=== PATIENT | male | born 1935 | race Caucasian/White ===

== ENCOUNTER 2019-04-02 22:44 | Outpatient (CLI) | payer MEDICARE | END 2019-04-02 22:45 | disposition critical access hospital (66) | LOC: EMS 22:44 | PROVIDERS: ATTEND Surgery | DX: R46.4 Slowness and poor responsiveness (principal) | CPT/HCPCS: A0425; A0427 ==

== ENCOUNTER 2019-04-02 23:14 | Emergency (ER) | payer MEDICARE, OTHER ==
--- NOTE | 2019-04-02 23:32 | ED Physician Documentation ---
History of Present Illness - Stated complaint Stated Complaint: UNRESPONSIVE - Chief complaint Chief Complaint: General - History obtained from History obtained from: Patient, EMS - History of Present Illness Timing: Prior to arrival - Additonal information Additional information: Patient is an 84-year-old male with history of atrial fibrillation for which he is on anticoagulation of xarelto, as well as aortic valve replacement presenting with reported unresponsive episode while at home earlier this evening. Per EMS report, stated that patient went to sleep in his recliner as usual after dinner. However, she was unable to arouse him and given concerns, started CPR. It is unclear if patient was not breathing or without a pulse. is not currently available. By time of EMS arrival, no need for CPR was found and patient transported to the ED. Patient himself denies any complaints such as headache, vision changes, chest pain, abdominal pain, vomiting, urinary changes, stool changes, difficulty breathing, productive cough, fever, or other complaints. However, he does report that he fell while in the barn earlier today but does not believe he struck his head or loss consciousness. Patient does admit to drinking alcohol earlier tonight. He also has narcotic pain medications at home, but is unsure if he took any this evening. No other improving or worsening factors noted. Review of Systems Constitutional: denies: Fever Eyes: denies: Loss of vision Cardiac: denies: Chest pain / pressure Respiratory: denies: Dyspnea GI: denies: Abdominal Pain PD PAST MEDICAL HISTORY - Past Medical History Cardiovascular: Hypertension, High cholesterol, Atrial fibrillation, Valve disorder GI: GERD Psych: Depression Derm: Other (Basal cell carcinoma) - Past Surgical History General: Appendectomy Cardiovascular: Valve replacement HEENT: Cataracts, Tonsil/Adenoidectomy Other past surgical history: Multiple orthopedic repairs and joint replacements - Present Medications Home Medications: Ambulatory Orders Medication Instructions Recorded Confirmed Atorvastatin [Lipitor] 40 mg PO DAILY 04/03/19 04/03/19 Ca/D3/Mag Ox/Zinc/Senior Finance Manager/Michael/Bor 1 tab PO DAILY 04/03/19 04/03/19 [Calcium [id number] Chw Tb] Cetirizine [ZyrTEC] 10 mg PO DAILY 04/03/19 04/03/19 Chlorthalidone 25 mg PO DAILY 04/03/19 04/03/19 Fluticasone [Flonase] 1 spray МАРИЯ DAILY 04/03/19 04/03/19 Gabapentin 600 mg PO BID 04/03/19 04/03/19 Losartan Potassium 100 mg PO DAILY 04/03/19 04/03/19 Magnesium Oxide [Magnesium] 400 mg PO DAILY 04/03/19 04/03/19 Metoprolol Succinate [Toprol Xl] 50 mg PO DAILY 04/03/19 04/03/19 Pantoprazole [Protonix] 40 mg PO BID 04/03/19 04/03/19 Rivaroxaban [Xarelto] 20 mg PO DAILY 04/03/19 04/03/19 Tadalafil [Cialis] 20 mg PO PRN PRN 04/03/19 04/03/19 amLODIPine [Norvasc] 10 mg PO DAILY 04/03/19 04/03/19 oxyCODONE [Roxicodone] 5 mg PO PRN PRN 04/03/19 04/03/19 - Allergies Allergies/Adverse Reactions: Allergies Allergy/AdvReac Type Severity Reaction Status Date / Time atenolol AdvReac Intermediate Unknown Verified 04/03/19 00:29 azithromycin AdvReac Unknown Verified 04/03/19 00:30 diltiazem AdvReac Unknown Verified 04/03/19 00:30 lisinopril AdvReac Unknown Verified 04/03/19 00:30 procainamide AdvReac Unknown Verified 04/03/19 00:30 PD ED PE NORMAL - Vitals Vital signs reviewed: Yes - General General: Alert and oriented X 3, No acute distress, Well developed/nourished, Other (Slight tremor to left side (reported as chronic)) - HEENT HEENT: Atraumatic, PERRL (No miosis), EOMI (Gross visual acuity intact. No nystagmus.), Moist mucous membranes, Pharynx benign, Other (No evidence of tongue biting or intraoral trauma.) - Cardiac Cardiac: RRR, No murmur - Respiratory Respiratory: No respiratory distress, Clear bilaterally - Abdomen Abdomen: Normal bowel sounds, Soft, Non tender, Non distended - Derm Derm: Normal color, Warm and dry, No rash - Extremities Extremities: No deformity, No tenderness to palpate. No: No edema (2+ pitting pedal edema (reports chronic)) - Neuro Neuro: Alert and oriented X 3, toddler teacher 2-12 intact, No motor deficit, No sensory deficit (No gross deficits noted.However, tremor as stated above which is likely chronic. Slightly slow to respond to questioning but appropriate.) - Psych Psych: Normal mood, Normal affect (Slightly slow to respond to questioning and smells of alcohol) Results - Vitals Vitals: Vital Signs - 24 hr 04/02/19 04/02/19 04/03/19 23:16 23:31 00:06 Temperature 35.6 C L Heart Rate 76 69 71 Respiratory 21 16 19 Rate Blood Pressure 105/88 H 118/68 116/72 O2 Saturation 97 95 95 04/03/19 04/03/19 04/03/19 00:30 01:00 01:30 Temperature Heart Rate 68 66 69 Respiratory 15 15 15 Rate Blood Pressure 105/58 L 120/64 100/60 O2 Saturation 98 94 94 04/03/19 04/03/19 02:00 02:30 Temperature Heart Rate 58 L 71 Respiratory 14 22 Rate Blood Pressure 104/59 L 120/62 O2 Saturation 98 95 Oxygen O2 Source Room air - EKG (time done) 2318 Rate: Rate (enter#) (67) Rhythm: NSR Intervals: Prolonged QT, RBBB Compare to prior EKG: Unchanged from prior EKG - Labs Labs: Laboratory Tests 04/02/19 04/02/19 04/02/19 23:33 23:33 23:33 WBC 5.0 RBC 3.90 L Hgb 12.3 L Hct 36.6 L MCV 94.0 MCH 31.5 H MCHC 33.5 RDW 14.7 Plt Count 115 L MPV 9.2 Neut # (Auto) 3.3 Lymph # (Auto) 0.9 L [place] # (Auto) 0.5 Eos # (Auto) 0.2 Baso # (Auto) 0.0 Absolute Nucleated RBC 0.00 Nucleated RBC % 0.0 PT 19.2 H INR 1.7 H APTT 32.4 Sodium 138 Potassium 3.5 Chloride 100 L Carbon Dioxide 24 Anion Gap 14.0 H BUN 25 H Creatinine 1.5 H Estimated GFR (MDRD) 45 L Glucose 114 H Calcium 9.5 Total Bilirubin 0.6 AST 62 H ALT 42 Alkaline Phosphatase 47 Troponin I Total Protein 7.0 Albumin 4.2 Globulin 2.8 Albumin/Globulin Ratio 1.5 Lipase 28 TSH Urine Color Urine Clarity Urine pH Ur Specific [place] Urine Protein Urine Glucose (UA) Urine Ketones Urine Occult Blood Urine Nitrite Urine Bilirubin Urine Urobilinogen Ur Leukocyte Esterase Ur Microscopic Review Urine Culture Comments Salicylates < 6.0 Urine Opiates Screen Ur Oxycodone Screen Urine Methadone Screen Ur Propoxyphene Screen Acetaminophen < 10 L Ur Barbiturates Screen Ur Tricyclics Screen Ur Phencyclidine Scrn Ur Amphetamine Screen U Methamphetamines Scrn U Benzodiazepines Scrn Urine Cocaine Screen U Cannabinoids Screen Ethyl Alcohol 157.0 04/02/19 04/02/19 04/03/19 23:33 23:33 00:07 WBC RBC Hgb Hct MCV MCH MCHC RDW Plt Count MPV Neut # (Auto) Lymph # (Auto) [place] # (Auto) Eos # (Auto) Baso # (Auto) Absolute Nucleated RBC Nucleated RBC % PT INR APTT Sodium Potassium Chloride Carbon Dioxide Anion Gap BUN Creatinine Estimated GFR (MDRD) Glucose Calcium Total Bilirubin AST ALT Alkaline Phosphatase Troponin I < 0.04 Total Protein Albumin Globulin Albumin/Globulin Ratio Lipase TSH 3.36 Urine Color YELLOW Urine Clarity CLEAR Urine pH 6.0 Ur Specific [place] 1.010 Urine Protein NEGATIVE Urine Glucose (UA) NEGATIVE Urine Ketones NEGATIVE Urine Occult Blood NEGATIVE Urine Nitrite NEGATIVE Urine Bilirubin NEGATIVE Urine Urobilinogen 0.2 (NORMAL) Ur Leukocyte Esterase NEGATIVE Ur Microscopic Review NOT INDICATED Urine Culture Comments NOT INDICATED Salicylates Urine Opiates Screen NEGATIVE Ur Oxycodone Screen NEGATIVE Urine Methadone Screen NEGATIVE Ur Propoxyphene Screen NEGATIVE Acetaminophen Ur Barbiturates Screen NEGATIVE Ur Tricyclics Screen NEGATIVE Ur Phencyclidine Scrn NEGATIVE Ur Amphetamine Screen NEGATIVE U Methamphetamines Scrn NEGATIVE U Benzodiazepines Scrn NEGATIVE Urine Cocaine Screen NEGATIVE U Cannabinoids Screen NEGATIVE Ethyl Alcohol 04/03/19 02:15 WBC RBC Hgb Hct MCV MCH MCHC RDW Plt Count MPV Neut # (Auto) Lymph # (Auto) [place] # (Auto) Eos # (Auto) Baso # (Auto) Absolute Nucleated RBC Nucleated RBC % PT INR APTT Sodium Potassium Chloride Carbon Dioxide Anion Gap BUN Creatinine Estimated GFR (MDRD) Glucose Calcium Total Bilirubin AST ALT Alkaline Phosphatase Troponin I < 0.04 Total Protein Albumin Globulin Albumin/Globulin Ratio Lipase TSH Urine Color Urine Clarity Urine pH Ur Specific [place] Urine Protein Urine Glucose (UA) Urine Ketones Urine Occult Blood Urine Nitrite Urine Bilirubin Urine Urobilinogen Ur Leukocyte Esterase Ur Microscopic Review Urine Culture Comments Salicylates Urine Opiates Screen Ur Oxycodone Screen Urine Methadone Screen Ur Propoxyphene Screen Acetaminophen Ur Barbiturates Screen Ur Tricyclics Screen Ur Phencyclidine Scrn Ur Amphetamine Screen U Methamphetamines Scrn U Benzodiazepines Scrn Urine Cocaine Screen U Cannabinoids Screen Ethyl Alcohol PD MEDICAL DECISION MAKING - ED course Complexity details: reviewed old records, reviewed results, re-evaluated patient, considered differential, d/w patient, d/w family ED course: Patient presenting from home with report of "unresponsive" episode. Have extremely low suspicion for cardiopulmonary arrest. Likely, feel the patient was sleeping and this combined with his alcohol intake and possible fall and concussion earlier today caused him to be more difficult to arouse than usual.Patient himself has no complaints at this time. Patient reports that his tremor or myoclonus is at his baseline. Patient denies excessive use of alcohol, but admits to several drinks earlier today and denies other recreational drug use. Patient is unsure if he took his home narcotic prescription or not. Do also have suspicion for possible narcosis, however, patient is in no respiratory distress, hypoxic, or with pinpoint pupils and do not feel Narcan is necessary. Do not find other evidence to indicate toxidrome, intoxication, withdrawal otherwise. Given lack of respiratory issues, also have lower suspicion for pneumonia and PE. Do not find evidence of significant trauma, but plan to obtain further imaging particularly CT head to evaluate for such as well as other intracranial injury like stroke. However, again do not find new neurological deficit on exam. No other signs of systemic illness noted. Patient denies cardiac symptoms, but considered ACS, myocardial infarction, unstable angina particularly given cardiac history. EKG obtained which did find abnormalities, but are similar to his previous EKGs. Troponin x2 was also unremarkable. Patient received small amount of IV fluids given his mild hypotension, but did not want to overdo fluids as patient does have some volume overload noted on exam. Screening lab work and urinalysis otherwise returned unremarkable. CT head did not find evidence of acute findings, nor did chest x-ray. Patient continued to be monitored in the ED with no further complaints or changes. Patient and updated about results and recommendations including supportive cares, strict return precautions, and appropriate follow-up. voiced understanding and is comfortable with discharge home. She is able to drive the patient home tonight. Departure - Departure Disposition: 01 Home, Self Care Clinical Impression: Alcohol use, Somnolence Condition: Good Follow-Up: Tia Cline MD [Primary Care Provider] - Within 3 Days Comments: Please continue all home medications as previously instructed. Recommend casa idance of alcohol and narcotic pain medications until follow-up with your primary care physician. Please follow-up with your primary care physician in next 2 to 3 days. Return to ED sooner if experience worsening symptoms or other concerns. Discharge Date/Time: 04/03/19 03:07
[2019-04-02 23:43] LABS: BASOPHILS % (AUTO) 0.8 %; EOSINOPHILS # (AUTO) 0.2 10^3/uL (0.0-0.7); EOSINOPHILS % (AUTO) 3.9 %; HGB - HEMOGLOBIN 12.3 g/dL (14.0-18.0); LYMPHOCYTES # (AUTO) 0.9 10^3/uL (1.5-3.5); LYMPHOCYTES % (AUTO) 18.3 %; MEAN CORPUSCULAR HEMOGLOBIN 31.5 pg (27.0-31.0); MEAN CORPUSCULAR HGB CONC 33.5 g/dL (32.0-36.0); MEAN PLATELET VOLUME 9.2 fL (7.4-11.4); MONOCYTES # (AUTO) 0.5 10^3/uL (0.0-1.0); NEUTROPHILS # (AUTO) 3.3 10^3/uL (1.5-6.6); PLT - PLATELET COUNT 115 10^3/uL (130-450); RED CELL DISTRIBUTION WIDTH 14.7 % (12.0-15.0)
[2019-04-02 23:48] LABS: INR 1.7 (0.8-1.2); PT - PROTHROMBIN TIME 19.2 secs (9.9-12.6)
[2019-04-02 23:55] LABS: PARTIAL THROMBOPLASTIN TIME 32.4 secs (24.9-33.3)
[2019-04-02 23:56] LABS: ACETAMINOPHEN < 10 ug/mL (10-30); ALBUMIN 4.2 g/dL (3.2-5.5); ALBUMIN/GLOBULIN RATIO 1.5 (1.0-2.2); ALKALINE PHOSPHATASE 47 IU/L (42-121); ALT ALANINE AMINOTRANSFERASE 42 IU/L (10-60); AST ASPARTATE AMINOTRANSFERASE 62 IU/L (10-42); BILIRUBIN,TOTAL 0.6 mg/dL (0.2-1.0); BUN - BLOOD UREA NITROGEN 25 mg/dL (6-20); CALCIUM 9.5 mg/dL (8.5-10.3); CARBON DIOXIDE - CO2 24 mmol/L (21-32); CHLORIDE 100 mmol/L (101-111); CREATININE 1.5 mg/dL (0.6-1.2); GFR - MDRD 45 (>89); GLUCOSE 114 mg/dL (70-100); LIPASE 28 U/L (22-51); SALICYLATE < 6.0 mg/dL; SODIUM 138 mmol/L (135-145)
[2019-04-03] MEDS ORDERED: SODIUM CHLORIDE 0.9% 1,000 ML IV ONE (00:04)
--- NOTE | 2019-04-03 00:05 | CT Report ---
Reason: reportedly unresponsive Procedure Date: 04/02/2019 Accession Number: [id number] / [id number] Procedure: CT - HEAD WO CPT Code: FULL RESULT: EXAM: CT HEAD EXAM DATE: 04/02/2019 11:43 PM. CLINICAL HISTORY: Reportedly unresponsive. COMPARISON: None. TECHNIQUE: Multiaxial CT images were obtained from the foramen magnum to the vertex. Reformats: Sagittal and coronal. IV contrast: None. In accordance with CT protocol optimization, one or more of the following dose reduction techniques were utilized for this exam: automated exposure control, adjustment of mA and/or KV based on patient size, or use of iterative reconstructive technique. FINDINGS: Parenchyma: No intraparenchymal hemorrhage. No evidence of mass, midline shift or CT findings of acute infarction. Zavala-white differentiation is distinct. Diffuse moderate chronic microangiopathic white matter changes are evident. Extraaxial Spaces: Normal for age. No subdural or epidural collections identified. Ventricles: The ventricles and cortical sulci are enlarged, consistent with age-related tissue loss. Sinuses: Imaged paranasal sinuses, orbits, and mastoids show no significant abnormality. Bones: No evidence of fracture or calvarial defect. Other: None. IMPRESSION: Moderate senescent changes without evidence of acute intracranial abnormality. RADIA
[2019-04-03 00:14] LABS: MUDS CUTOFF CONCENTRATIONS CUTOFF CONC BELOW:
[2019-04-03 00:17] LABS: BILIRUBIN,URINE NEGATIVE (NEGATIVE); GLUCOSE, URINE (UA) NEGATIVE (NEGATIVE); KETONES,URINE (UA) NEGATIVE (NEGATIVE); LEUKOCYTE ESTERASE, URINE NEGATIVE (NEGATIVE); NITRITE,URINE NEGATIVE (NEGATIVE); OCCULT BLOOD,URINE NEGATIVE (NEGATIVE); PROTEIN,URINE NEGATIVE (NEGATIVE); UROBILINOGEN,URINE 0.2 (NORMAL) E.U./dL (NORMAL)
[2019-04-03 00:18] LABS: CLARITY,URINE CLEAR (CLEAR)
--- NOTE | 2019-04-03 00:21 | XRAY Report ---
Reason: chest pain Procedure Date: 04/02/2019 Accession Number: [id number] / [id number] Procedure: XR - Chest 1 View X-Ray CPT Code: 96936 FULL RESULT: EXAM: CHEST RADIOGRAPHY EXAM DATE: 04/02/2019 11:55 PM. CLINICAL HISTORY: Chest pain. COMPARISON: PCXR 02/03/2007 4:56 AM. TECHNIQUE: 1 view. FINDINGS: Lungs/Pleura: Low volumes with mild basilar probable atelectasis. No definite pneumonia or edema. No gross pneumothorax or large effusion. Mediastinum: Mild cardiomegaly. No mediastinal shift. Other: Post median sternotomy and bilateral shoulder replacement. IMPRESSION: Hypoventilatory single view chest with cardiomegaly but without definite acute process. RADIA
[2019-04-03 00:28] LABS: AMPHETAMINE SCREEN,URINE NEGATIVE (NEGATIVE); BENZODIAZEPINES SCREEN, URINE NEGATIVE (NEGATIVE); COCAINE SCREEN URINE NEGATIVE (NEGATIVE); METHADONE SCREEN, URINE NEGATIVE (NEGATIVE); METHAMPHETAMINES SCREEN, URINE NEGATIVE (NEGATIVE); OPIATE SCREEN, URINE NEGATIVE (NEGATIVE); OXYCODONE SCREEN, URINE NEGATIVE (NEGATIVE); PROPOXYPHENE SCREEN, URINE NEGATIVE (NEGATIVE); TRICYCLIC ANTIDEPRESSANT,URINE NEGATIVE (NEGATIVE)
[2019-04-03 03:20] VITALS: BP 106/55
--- NOTE | 2019-04-03 03:42 | ED Physician Documentation ---
ED Addendum - Addendum Addendum: 04/03/19 03:41 Add to MDM: Patient's does report that he requires CPAP at home and often when he is sleeping in his chair or at the kitchen table such as he was tonight, he is not using CPAP. Emphasized need to wear CPAP at all times while sleeping as this can cause hypoxia which could make him more difficult to arouse and certainly cause other consequences to his general health.
== END 2019-04-03 03:35 | disposition home or self-care (01) ==
LOC: ED 23:14
DX: R40.0 Somnolence (principal); Z72.89 Other problems related to lifestyle; I10 Essential (primary) hypertension; Z86.79 Personal history of other diseases of the circulatory system; Z79.01 Long term (current) use of anticoagulants
CPT/HCPCS: 36415; 70450; 71045; 80053; 80306; 80307; 80320; 80329; 81001; 81003; 83690; 84443; 84484; 85025; 85610; 85730; 87086; 93005; 96360; 99283; 99284

== ENCOUNTER 2023-08-12 12:43 | Outpatient (CLI) | payer MEDICARE, OTHER | END 2023-08-12 12:44 | disposition short-term general hospital (02) | LOC: EMS 12:43 | DX: S79.911A Unspecified injury of right hip, initial encounter (principal); M25.551 Pain in right hip; W18.30XA Fall on same level, unspecified, initial encounter; Y93.H9 Activity, other involving exterior property and land maintenance, building and construction; Y92.009 Unspecified place in unspecified non-institutional (private) residence as the place of occurrence of the external cause; Z79.01 Long term (current) use of anticoagulants | CPT/HCPCS: A0425; A0429 ==

== ENCOUNTER 2023-08-17 12:42 | Outpatient (CLI) | payer MEDICARE, OTHER ==
--- NOTE | 2023-08-17 16:56 | XRAY Report ---
PROCEDURE: Hip w/Pelvis 2-3V RT INDICATIONS: PERIPROSTH FRACTURE AROUND INTERNAL PROSTH R HIP J TECHNIQUE: AP pelvis with AP and lateral views of the right hip. COMPARISON: None. FINDINGS: Bones: Residual changes are seen from bilateral hip arthroplasties. There is a displaced fracture of the right greater trochanter with approximately 60 mm superomedial displacement. Heterotopic ossific ation versus an additional osseous fragment is seen at the lateral aspect of the greater trochanter. Pelvic bones are otherwise intact. Degenerative changes are seen in the included lumbar spine. Soft tissues: No suspicious soft tissue calcifications or masses. 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 2.Displaced periprosthetic fracture involving the right greater trochanter. Reviewed by: Wilber Deluca MD on 08/17/2023 4:54 PM PDT Approved by: Wilber Deluca MD on 08/17/2023 4:54 PM PDT Station ID: [id number]
== END 2023-08-17 12:43 | disposition home or self-care (01) ==
LOC: DI 12:42
PROVIDERS: ATTEND Registered Nurse
DX: M97.01XD Periprosthetic fracture around internal prosthetic right hip joint, subsequent encounter (principal)